=== PATIENT | male | born 1990 | race Caucasian/White ===

== ENCOUNTER 2018-09-15 08:00 | Emergency (ER) | payer SELFPAY ==
[2018-09-15] MEDS ORDERED: Prochlorperazine TAB* 5 MG PO ONE (08:42)
--- NOTE | 2018-09-15 08:49 | UC ---
Skin Complaint HPI - HPI Summary HPI Summary: 27-year-old male comes in with a chief complaint of a rash to the right leg. 3 days ago he had what he felt was an insect bite at that area. He had multiple mosquito bites and he thinks it was a mosquito bite. 2 days ago it got more raised up and erythematous. They treated with hydrogen peroxide and Neosporin. This morning the areas bigger rather more raised and painful. He has pain coming up into right leg. He feels feverish. He also feels mildly nauseous. - History of Current Complaint Chief Complaint: UCSkin Time Seen by Provider: 09/15/18 08:16 Stated Complaint: BACK OF RIGHT LEG-INSECT BITE,FEVER Pain Intensity: 5 - Allergy/Home Medications Allergies/Adverse Reactions: Allergies Allergy/AdvReac Type Severity Reaction Status Date / Time ondansetron [From Zofran] Allergy Hives Verified 09/15/18 08:24 Home Medications: Home Medications Escitalopram Oxalate [Lexapro 10 mg] 10 mg PO DAILY 09/15/18 [History Confirmed 09/15/18] Ibuprofen TAB* [Motrin TAB* 400 MG] 400 mg PO Q6H PRN 09/15/18 [History Confirmed 09/15/18] hydrOXYzine HCL TAB* [Atarax 25 MG TAB*] 25 mg PO QID PRN 09/15/18 [History Confirmed 09/15/18] PMH/Surg Hx/FS Hx/Imm Hx Previously Healthy: Yes - Surgical History Surgical History: None - Family History Known Family History: Positive: Non-Contributory - Social History Alcohol Use: None Substance Use Type: None Smoking Status (MU): Never Smoked Tobacco Review of Systems All Other Systems Reviewed And Are Negative: Yes Constitutional: Positive: Negative Skin: Positive: Other - On the right leg posterior aspect just below the right knee there is a 4 cm area of erythema with raised crusting and also some serous drainage. It is tender to palpation there is no streaking. Eyes: Positive: Negative ENT: Positive: Negative Respiratory: Positive: Negative Cardiovascular: Positive: Negative Gastrointestinal: Positive: Negative Motor: Positive: Negative Neurovascular: Positive: Negative Musculoskeletal: Positive: Negative Neurological: Positive: Negative Psychological: Positive: Negative Is Patient Immunocompromised?: No Physical Exam Triage Information Reviewed: Yes Appearance: Well-Nourished, Ill-Appearing - mild, Pain Distress - mild with touching the wound Vital Signs: Initial Vital Signs Temp 99.3 F 09/15/18 08:16 Pulse 107 09/15/18 08:16 Resp 18 09/15/18 08:16 BP 117/53 09/15/18 08:16 Pulse Ox 98 09/15/18 08:16 Vital Signs Reviewed: Yes Eye Exam: Normal Eyes: Positive: Conjunctiva Clear Neck: Positive: Supple Respiratory: Positive: No respiratory distress Musculoskeletal: Positive: Strength Intact, ROM Intact Neurological Exam: Normal Neurological: Positive: Alert, Muscle Tone Normal Psychological: Positive: Age Appropriate Behavior Skin: Positive: Other - On the right leg posterior aspect just below the right knee there is a 4 cm area of erythema with raised crusting and also some serous drainage. It is tender to palpation there is no streaking. Course/Dx - Course Course Of Treatment: Patient was nauseous in clinic. He was given Compazine here. Initially his heart rate was greater than 100. On repeat was less than 100. Blood pressure slightly low. It appears to be going on is that he had an insect bite that's now become infected. Therefore we'll treat with doxycycline 100 mg by mouth twice a day. They did not see a tick and patient reports he had multiple it mosquito bites that looked all the same this is the only one that got worse. Additionally patient had Neosporin on it overnight which may account for part of the inflammation if he has allergic reaction to the Neosporin. Therefore discussed stop Neosporin and then use mupirocin. We discussed the signs and symptoms of sepsis. We discussed that if he did not improve or if he got worse he needs to go the emergency department for further evaluation and care. He was here with his partner. - Diagnoses Provider Diagnosis: Insect bite, Cellulitis of leg, right Discharge - Sign-Out/Discharge Documenting (check all that apply): Patient Departure All imaging exams completed and their final reports reviewed: No Studies - Discharge Plan Condition: Stable Disposition: HOME Prescriptions: DOXYcycline CAP(*) [DOXYcycline 100MG CAP(*)] 100 mg PO BID #20 cap Mupirocin 1 applic TOPICAL BID #22 gm Prochlorperazine TAB* [Compazine Tab*] 10 mg PO Q6H PRN #10 tab PRN Reason: Nausea Patient Education Materials: Cellulitis (ED), Insect Bite or Sting (ED) Referrals: [facility] [place] [facility] REFERRAL [Outside] Additional Instructions: FOLLOW UP WITH YOUR DOCTOR IF NOT COMPLETELY IMPROVED. GO TO THE EMERGENCY DEPARTMENT IF WORSE; SPREAD OF INFECTION, FEVER, YOU FEEL LIKE PASSING OUT OR ANY QUESTIONS OR CONCERNS. - Billing Disposition and Condition Condition: STABLE Disposition: Home
[2018-09-15 09:00] VITALS: BP 101/61
== END 2018-09-15 09:07 | disposition home or self-care (01) ==
LOC: UCCORT 08:00
DX: S80.861A Insect bite (nonvenomous), right lower leg, initial encounter (principal); L03.115 Cellulitis of right lower limb; W57.XXXA Bitten or stung by nonvenomous insect and other nonvenomous arthropods, initial encounter; Y92.9 Unspecified place or not applicable
CPT/HCPCS: 87070; 87077; 87205; 99202; A9270-GY; G0463

== ENCOUNTER 2018-09-17 12:29 | Emergency (ER) | payer SELFPAY ==
[2018-09-17 12:49] VITALS: BP 106/64
--- NOTE | 2018-09-17 13:02 | UC ---
Skin Complaint HPI - HPI Summary HPI Summary: 27-year-old male comes in with a chief complaint of a skin infection on the right leg behind the right knee. Lesion started about 5 days ago with what appeared to be an insect bite. Gradually got worse he was seen here 2 days ago as started on doxycycline and topical mupirocin. He had been using Neosporin. He started with doxycycline. 2 days ago she was nauseous and feeling ill and had chills and therefore went to the emergency department where he's received IV fluids and antibiotics. He reports else that a culture there and attempted an I&D without drainage. Overall patient feels better. No more fevers or chills. 2 days ago he had pain coming up the leg. Today he reports both legs hurt but he feels like he's modifying his walking because of the pain of the rash. Comes in today because the center of the lesion is a darker deeper color. - History of Current Complaint Chief Complaint: UCSkin Time Seen by Provider: 09/17/18 12:52 Stated Complaint: RECHECK-RT LEG SKIN COMPLAINT Pain Intensity: 3 - Allergy/Home Medications Allergies/Adverse Reactions: Allergies Allergy/AdvReac Type Severity Reaction Status Date / Time ondansetron [From Zofran] Allergy Hives Verified 09/17/18 12:49 PMH/Surg Hx/FS Hx/Imm Hx Previously Healthy: Yes - Surgical History Surgical History: None - Family History Known Family History: Positive: Non-Contributory - Social History Alcohol Use: None Substance Use Type: None Smoking Status (MU): Never Smoked Tobacco Review of Systems All Other Systems Reviewed And Are Negative: Yes Constitutional: Positive: Other - SEE HPI Skin: Positive: Other - SEE HPI Eyes: Positive: Negative ENT: Positive: Negative Respiratory: Positive: Negative Cardiovascular: Positive: Negative Gastrointestinal: Positive: Negative Motor: Positive: Negative Neurovascular: Positive: Negative Musculoskeletal: Positive: Other: - SEE HPI Neurological: Positive: Negative Psychological: Positive: Negative Is Patient Immunocompromised?: No Physical Exam Triage Information Reviewed: Yes Appearance: Well-Appearing, No Pain Distress, Well-Nourished Vital Signs: Initial Vital Signs Temp 98.8 F 09/17/18 12:41 Pulse 96 09/17/18 12:41 Resp 16 09/17/18 12:41 BP 106/64 09/17/18 12:41 Pulse Ox 98 09/17/18 12:41 Vital Signs Reviewed: Yes Eye Exam: Normal Eyes: Positive: Conjunctiva Clear Neck: Positive: Supple Respiratory: Positive: No respiratory distress Musculoskeletal: Positive: Strength Intact, ROM Intact Neurological: Positive: Alert, Muscle Tone Normal Psychological: Positive: Normal Response To Family, Age Appropriate Behavior Skin: Positive: Other - On the posterior aspect of the right leg behind the knee there is a rash total 10 cm in diameter. There is a 6 mm central area that 's darker with blisters. There is some serous drainage. There is no streaking. The outer rim is less erythematous blanching. Course/Dx - Course Course Of Treatment: Patient's improved from 2 days ago. She did have IV antibiotics and IV fluids at the emergency department. They have extended his doxycycline for a full 21 days on the concern that this could be Lyme disease. Other possibilities include contact dermatitis such as hogs weed. Overall I feel the lesion is improving. We'll continue with the doxycycline. Here in clinic mupirocin was placed on the wound and a nonstick dressing was applied as his short pants seem to be rubbing on the area possibly causing further irritation. Patient's to get reevaluated if worse or any questions or concerns. - Diagnoses Provider Diagnosis: Cellulitis of leg, right Discharge - Sign-Out/Discharge Documenting (check all that apply): Patient Departure All imaging exams completed and their final reports reviewed: No Studies - Discharge Plan Condition: Stable Disposition: HOME Patient Education Materials: Cellulitis (ED) Referrals: [facility] [place] [facility] [Outside] [facility] [Outside] Additional Instructions: FOLLOW UP WITH YOUR DOCTOR IF NOT COMPLETELY IMPROVED. GET REEVALUATED SOONER IF WORSE OR ANY QUESTIONS OR CONCERNS. - Billing Disposition and Condition Condition: STABLE Disposition: Home
[2018-09-17] MEDS ORDERED: Mupirocin 2% OINT* TUBE TOPICAL ONE (13:04)
== END 2018-09-17 13:29 | disposition home or self-care (01) ==
LOC: UCCORT 12:29
DX: L03.115 Cellulitis of right lower limb (principal)
CPT/HCPCS: 87070; 87205; 99213; G0463